=== PATIENT | male | born 1965 | race Caucasian/White ===

== ENCOUNTER 2016-10-03 19:41 | Emergency (ER) | payer SELFPAY ==
[~2016-10-03] VITALS: Ht 188 cm; Wt 88.0 kg
[~2016-10-03 19:41] MED LIST: LEVA500T33 PO; LORT5TAB PO; METR-1 PO; Z.0.NO CURRENT MEDS
[2016-10-03 19:44] VITALS: BP 130/85; PULSE 86; RESP 14; TEMP 98.3; O2SAT 96
--- NOTE | 2016-10-03 20:20 | PD ---
HPI Chief Complaint: Laceration/Skin Injury Time Seen by Provider: 20:02 Travel History International Travel<30 days: No Contact w/Intl Traveler<30days: No Traveled to known affect area: No History of Present Illness HPI 51-year-old male presents to the emergency department with injury to his left posterior heel. Patient has a history of skin graft to the same heel when he was 18-year-old years old. Patient states he was hit in the posterior heel by a door sustaining a flap-like lesion to the heel. He is concerned about it not healing correctly. The injury happened last evening. Patient placed a nonstick dressing and ankle brace over it to maintain the flap position. Bleeding has been minimal through the day today. Pain is minimal at 3/10. Patient is up-to-date on his tetanus. He has no known drug allergies. PFSH Past Medical History Diabetes: Yes (METFORMIN) Diminished Hearing: No Immunizations Current: Yes Past Surgical History Genitourinary Surgery: Yes (hydrocele sx) Social History Alcohol Use: Yes (2-3 DRINKS PER WEEK) Tobacco Use: Yes (1 cigar wkly) Substance Use: No Allergies-Medications (Allergen,Severity, Reaction): Coded Allergies: No Known Allergies (Verified , 10/03/16) Reported Meds & Prescriptions Reported Meds & Active Scripts Active Keflex (Cephalexin) 500 Mg Cap 500 Mg PO Q8H Flagyl (Metronidazole) 500 Mg Tab 500 Mg PO QID Lortab 5/500 (Acetaminophen/Hydrocodone Bitart) 5 Mg/500 Mg Tab 1 Tab PO Q4- 6HPRN Levaquin (Levofloxacin) 500 Mg Tab 500 Mg PO DAILY Reported No Current Meds (Miscellaneous Medication) Misc Review of Systems Except as stated in HPI: all other systems reviewed are Neg General / Constitutional: No: Fever Eyes: No: Visual changes HENT: No: Headaches Cardiovascular: No: Chest Pain or Discomfort Respiratory: No: Shortness of Breath Gastrointestinal: No: Abdominal Pain Genitourinary: No: Dysuria Musculoskeletal: No: Pain Skin: No Rash Neurologic: No: Weakness Psychiatric: No: Depression Endocrine: No: Polydipsia Hematologic/Lymphatic: No: Easy Bruising Physical Exam Narrative GENERAL: Patient appears in no acute distress. SKIN: Warm and dry. Patient has a superficial vertical flap injury to the left posterior heel measuring 2 cm wide by possibly 4 cm in length. It is well positioned along the original injury site. No signs of cellulitis or purulent drainage. HEAD: Atraumatic. Normocephalic. EYES: Pupils equal and round. No scleral icterus. No injection or drainage. ENT: No nasal bleeding or discharge. Mucous membranes pink and moist. NECK: Trachea midline. Neck is supple nontender. CARDIOVASCULAR: Regular rate and rhythm. RESPIRATORY: No accessory muscle use. Clear to auscultation. Breath sounds equal bilaterally. MUSCULOSKELETAL: Extremities without clubbing, cyanosis, or edema. No obvious deformities. NEUROLOGICAL: Awake and alert. No obvious cranial nerve deficits. Motor grossly within normal limits. Five out of 5 muscle strength in the arms and legs. Normal speech. PSYCHIATRIC: Appropriate mood and affect; insight and judgment normal. Data Data Last Documented VS Vital Signs Date Time Temp Pulse Resp B/P Pulse Ox O2 Delivery O2 Flow Rate FiO2 10/03/16 19:44 98.3 86 14 130/85 96 Room Air MDM Medical Decision Making Medical Screen Exam Complete: Yes Emergency Medical Condition: Yes Differential Diagnosis Skin tear. Superficial flap laceration. Diabetic. Risk for infection. Narrative Course Patient is medically stable at time of exam. Wound appears well approximated, and suturing not felt warranted taste on my exam. Wound was cleansed thoroughly with Betadine solution, it was then covered with Xeroform gauze, and bulky bandage covered with Levon bandage. Patient is to limit all ambulation for the next 4 days and keep dressing in place. Patient is to take Keflex 500 mg 3 times a day for the next 7 days. Patient is to follow-up in 4 days for wound check, and dressing change. Patient should follow-up sooner with any worsening symptoms as needed. Diagnosis Primary Impression: Laceration of left heel without complication Qualified Code: S91.312A - Laceration of left heel without complication, initial encounter Additional Impression: Type 2 diabetes mellitus Patient Instructions: General Instructions, Laceration Without Closure (ED) Additional Instructions: Wound appears well approximated, and suturing not felt warranted taste on my exam. Wound was cleansed thoroughly with Betadine solution, it was then covered with Xeroform gauze, and bulky bandage covered with Levon bandage. Patient is to limit all ambulation for the next 4 days and keep dressing in place. Patient is to take Keflex 500 mg 3 times a day for the next 7 days. Patient is to follow-up in 4 days for wound check, and dressing change. Patient should follow-up sooner with any worsening symptoms as needed. Med/Other Pt SpecificInfo: Prescription(s) given Scripts Cephalexin (Keflex)500 Mg Aqu076 Mg PO Q8H #21 CAP Prov:Ashley Ennis MD 10/03/16 Disposition: 01 DISCHARGE HOME Condition: Stable Dick Beltran Oct 03, 2016 20:20
[2016-10-03] MEDS ORDERED: CEPH-460 PO (20:29)
== END 2016-10-03 21:30 | disposition home or self-care (01) ==
LOC: NEPB 19:41
DX: S91.312A Laceration without foreign body, left foot, initial encounter (principal); E11.9 Type 2 diabetes mellitus without complications; W20.8XXA Other cause of strike by thrown, projected or falling object, initial encounter; Z79.84 Long term (current) use of oral hypoglycemic drugs
CPT/HCPCS: 99283